=== PATIENT | female | born 1985 | race Hispanic/Latino ===

== ENCOUNTER 2020-07-02 07:27 | Outpatient (CLI) | payer OTHER ==
--- NOTE | 2020-07-02 08:08 | ULT ---
OB ULTRASOUND: HISTORY: anatomy FINDINGS: A single live intrauterine gestation is seen with measurements corresponding to an estimated gestatio nal age of 20 weeks 2 daysand JASWANT at 11/17/2020. The estimated weight measures 340 g or 12 ounces (21% by Hadlock criteria). biometry: BPD: 4.56 cm, 19 weeks 6 days HC: 17.50 cm, 20 weeks 1 day AC: 14.66 cm, 20 weeks 0 days FL: 3.38 cm, 20 weeks 5 days heart rate: 160bpm Placenta: Anterior Placenta previa: No JENNIFER: 14.8cm Cervical length: 3.8cm A three-vessel cord, cord insertion, kidneys, urinary bladder, stomach, 4 chambered heart, late ral ventricles, cerebellum, spine, lips/nose, upper and lower extremities are visualized. No definite anomalies are seen. IMPRESSION: Single live intrauterine gestation of 20 weeks 2 daysestimated gestational age and JASWANT at 11/17/2020
== END 2020-07-02 07:28 | disposition home or self-care (01) ==
LOC: BICULT 07:27
PROVIDERS: ATTEND Family Medicine
DX: O09.892 Supervision of other high risk pregnancies, second trimester (principal); Z3A.20 20 weeks gestation of pregnancy
CPT/HCPCS: 76805